=== PATIENT | female | born 1960 ===

== ENCOUNTER 2021-02-21 18:59 | Emergency (ER) | payer SELFPAY ==
--- NOTE | 2021-02-21 19:43 | NUR ---
Patient came up to registration window and stated "I changed my mind. I don't want to be seen anymore."
--- NOTE | 2021-02-21 19:44 | NUR ---
Patient was not seen by ERMD or triaged.
== END 2021-02-21 19:45 | disposition left against medical advice (07) ==
LOC: ER 19:07
DX: Z53.21 Procedure and treatment not carried out due to patient leaving prior to being seen by health care provider (principal)